=== PATIENT | male | born 1975 | race Caucasian/White ===

== ENCOUNTER 2023-08-02 11:39 | Emergency (ER) | payer SELFPAY ==
[2023-08-02 11:50] VITALS: RESP 18; TEMP 98.4; BMI 32.9
[2023-08-02] MEDS ORDERED: ACETAMINOPHEN 500 MG TABLET (FP) PO ONE (12:38)
[2023-08-02] MEDS ORDERED: ACETAMINOPHEN 325 MG TABLET (FP) ONE (12:54)
[2023-08-02 12:57] LABS: BASO % 0.8 % (0-2.0); EOS % 2.7 % (0-4.5); HEMATOCRIT 37.7 % (35.4-49); HEMOGLOBIN 13.1 GM/dL (11.7-16.9); LYMPH % 27.7 % (8-40); MCH 30.8 pg (25.7-33.7); MCHC 34.8 g/dl (32.0-35.9); MEAN CELL VOLUME 88.5 fl (80-96); MEAN PLT VOLUME 9.2 fl (7.5-11.1); MONO % 3.2 % (3.8-10.2); NEUT % 65.6 % (42.8-82.8); PLATELET COUNT 187 10^3/uL (134-434); RBC 4.26 M/mm3 (4.00-5.60); RDW 12.1 % (11.9-15.9); WHITE BLOOD COUNT 7.8 K/mm3 (4.0-10.0)
[2023-08-02 13:08] LABS: INR 0.95 (0.83-1.09)
[2023-08-02 13:11] LABS: ACTIVATED PTT 28.9 SECONDS (25.2-36.5)
[2023-08-02 13:18] LABS: CHLORIDE 101 mmol/L (98-107); POTASSIUM 4.4 mmol/L (3.5-5.1); SODIUM 133 mmol/L (136-145)
[2023-08-02 13:20] LABS: ALBUMIN 3.6 g/dl (3.4-5.0); ANION GAP 7 mmol/L (4-13); BLOOD UREA NITROGEN 27.4 mg/dL (7-18); CO2 25 mmol/L (21-32)
[2023-08-02 13:23] LABS: CREATININE 1.9 mg/dL (0.55-1.3); SGOT/AST 13 U/L (15-37); SGPT/ALT 27 U/L (13-61)
[2023-08-02 13:25] LABS: BILIRUBIN,TOTAL 0.4 mg/dL (0.2-1); TOT PROT 7.4 g/dl (6.4-8.2)
[2023-08-02 13:26] LABS: ALK PHOS 110 U/L (45-117)
[2023-08-02] MEDS ORDERED: LACTATED RINGERS SOLUTION 1000 ML INFUS.BAG IV ONE (13:26)
[2023-08-02] MEDS ORDERED: morphine CARPU-JECT 2 MG/1 ML DISP.SYRIN IVPUSH ONE (13:46)
[2023-08-02 13:57] LABS: GLUCOSE,RANDOM 461 mg/dL (74-106)
[2023-08-02 14:20] LABS: EPI CELLS 4 /uL (0-25.1); HYALINE CASTS 0 /uL (0-3.1); PH,URINE 5.5 (5.0-8.0); URINE APPEARANCE CLEAR; URINE BACTERIA 4 /uL (0-1359); URINE BILIRUBIN NEGATIVE (NEGATIVE); URINE COLOR YELLOW; URINE GLUCOSE (UA) 3+ (NEGATIVE); URINE KETONE NEGATIVE (NEGATIVE); URINE LEUK ESTERASE NEGATIVE (NEGATIVE); URINE NITRITE NEGATIVE (NEGATIVE); URINE PROTEIN 2+ (NEGATIVE); URINE RBC 11 /uL (0-23.9); URINE UROBILINOGEN 0.2 mg/dL (0.2-1.0); URINE WBC 5 /uL (0-25.8)
[2023-08-02 15:08] VITALS: BP 158/90; PULSE 70
== END 2023-08-02 16:35 | disposition home or self-care (01) ==
LOC: JER 11:39
PROC: 3E033GC Introduction of Other Therapeutic Substance into Peripheral Vein, Percutaneous Approach (ICD-10-PCS; principal; 2023-08-02)
DX: R10.31 Right lower quadrant pain (principal); S39.011A Strain of muscle, fascia and tendon of abdomen, initial encounter; X50.0XXA Overexertion from strenuous movement or load, initial encounter; Y99.0 Civilian activity done for income or pay
CPT/HCPCS: 36415; 74177-TC; 80053; 81003; 85025; 85610; 85730; 86850; 86900; 86901; 93005; 93010; 99285-25; Q9967

== ENCOUNTER 2023-08-15 12:28 | Emergency (ER) | payer SELFPAY ==
[2023-08-15 12:34] VITALS: BP 183/88; PULSE 85; RESP 18; TEMP 98.6; BMI 31.6
[2023-08-15] MEDS: CEFTRIAXONE 1,000 MG in DEXTROSE 5%-WATER - 50 ML IVPB ONE (15:17)
[2023-08-15] MEDS: DOXYCYCLINE HYCLATE 100 MG CAPSULE PO ONE (15:17)
[2023-08-15] MEDS ORDERED: DOXYCYCLINE HYCLATE 100 MG CAPSULE PO ONE (15:18)
[2023-08-15] MEDS ORDERED: CEFTRIAXONE 1 GM/50 ML BAG ONE (15:18)
[2023-08-15 15:20] LABS: BASO % 0.8 % (0-2.0); EOS % 3.3 % (0-4.5); HEMATOCRIT 36.4 % (35.4-49); HEMOGLOBIN 12.6 GM/dL (11.7-16.9); LYMPH % 32.9 % (8-40); MCH 30.7 pg (25.7-33.7); MCHC 34.7 g/dl (32.0-35.9); MEAN CELL VOLUME 88.4 fl (80-96); MEAN PLT VOLUME 9.3 fl (7.5-11.1); PLATELET COUNT 186 10^3/uL (134-434); RBC 4.12 M/mm3 (4.00-5.60); RDW 12.5 % (11.9-15.9); WHITE BLOOD COUNT 11.7 K/mm3 (4.0-10.0)
[2023-08-15 15:23] LABS: EPI CELLS 2 /uL (0-25.1); HYALINE CASTS 0 /uL (0-3.1); URINE APPEARANCE CLEAR; URINE BACTERIA 1 /uL (0-1359); URINE BILIRUBIN NEGATIVE (NEGATIVE); URINE COLOR YELLOW; URINE GLUCOSE (UA) 3+ (NEGATIVE); URINE KETONE NEGATIVE (NEGATIVE); URINE LEUK ESTERASE NEGATIVE (NEGATIVE); URINE NITRITE NEGATIVE (NEGATIVE); URINE PROTEIN 2+ (NEGATIVE); URINE RBC 11 /uL (0-23.9); URINE UROBILINOGEN 0.2 mg/dL (0.2-1.0); URINE WBC 5 /uL (0-25.8)
[2023-08-15 15:41] LABS: POTASSIUM 4.1 mmol/L (3.5-5.1)
[2023-08-15 15:45] LABS: CALCIUM 8.9 mg/dL (8.5-10.1)
[2023-08-15 15:46] LABS: ALBUMIN 3.4 g/dl (3.4-5.0); BLOOD UREA NITROGEN 26.3 mg/dL (7-18)
[2023-08-15 15:48] LABS: CREATININE 1.8 mg/dL (0.55-1.3)
[2023-08-15 15:49] LABS: BILIRUBIN,TOTAL 0.5 mg/dL (0.2-1); TOT PROT 6.8 g/dl (6.4-8.2)
[2023-08-15] MEDS: SODIUM CHLORIDE 0.9% 500 ML INFUS.BAG IV ONE (15:59)
== END 2023-08-15 19:20 | disposition home or self-care (01) ==
LOC: JER 12:28
DX: R10.31 Right lower quadrant pain (principal); N30.90 Cystitis, unspecified without hematuria
CPT/HCPCS: 36415; 74177-TC; 76870-TC; 80053; 81003; 82962; 85025; 87086; 99285-25; Q9967

== ENCOUNTER 2024-01-05 10:42 | Emergency (ER) | payer OTHER ==
[2024-01-05 11:19] VITALS: RESP 18; BMI 35.0
[2024-01-05] MEDS: SODIUM CHLORIDE 0.9% 1000 ML INFUS.BAG IV ONE ×2 (12:27→16:41)
[2024-01-05] MEDS ORDERED: KETOROLAC TROMETHAMINE 30 MG/1 ML VIAL ONE (12:28)
[2024-01-05] MEDS: KETOROLAC TROMETHAMINE 30 MG/1 ML VIAL IVPUSH ONE (12:29)
[2024-01-05 12:32] LABS: BASO % 1.2 % (0-2.0); EOS % 4.4 % (0-4.5); HEMATOCRIT 38.1 % (35.4-49); HEMOGLOBIN 13.3 GM/dL (11.7-16.9); LYMPH % 35.8 % (8-40); MCH 30.2 pg (25.7-33.7); MCHC 34.8 g/dl (32.0-35.9); MEAN CELL VOLUME 86.9 fl (80-96); MEAN PLT VOLUME 9.5 fl (7.5-11.1); MONO % 3.9 % (3.8-10.2); NEUT % 54.7 % (42.8-82.8); PLATELET COUNT 174 10^3/uL (134-434); RBC 4.39 M/mm3 (4.00-5.60); RDW 12.9 % (11.9-15.9); WHITE BLOOD COUNT 8.4 K/mm3 (4.0-10.0)
[2024-01-05 12:38] LABS: INR 0.86 (0.83-1.09); PROTHROMBIN TIME (PATIENT) 9.8 SEC (9.7-13.0)
[2024-01-05 12:41] LABS: ACTIVATED PTT 30.6 SECONDS (25.2-36.5)
[2024-01-05 12:58] LABS: POTASSIUM 4.6 mmol/L (3.5-5.1)
[2024-01-05 13:01] LABS: CALCIUM 8.8 mg/dL (8.5-10.1)
[2024-01-05 13:02] LABS: ALBUMIN 3.7 g/dl (3.4-5.0); BLOOD UREA NITROGEN 32.8 mg/dL (7-18)
[2024-01-05 13:05] LABS: CREATININE 2.4 mg/dL (0.55-1.3)
[2024-01-05 13:06] LABS: BILIRUBIN,TOTAL 0.4 mg/dL (0.2-1)
[2024-01-05 13:07] LABS: TOT PROT 7.3 g/dl (6.4-8.2)
[2024-01-05] MEDS: ACETAMINOPHEN 1000 MG/100 ML BAG IVPB ONE (16:41)
[2024-01-05] MEDS ORDERED: ACETAMINOPHEN INJECTION 100 ML IVPB ONE (16:44)
[2024-01-05 17:22] VITALS: BP 178/85; PULSE 65; TEMP 97.9
== END 2024-01-05 17:46 | disposition home or self-care (01) ==
LOC: JER 10:42
PROC: 3E033NZ Introduction of Analgesics, Hypnotics, Sedatives into Peripheral Vein, Percutaneous Approach (ICD-10-PCS; principal; 2024-01-05)
PROC: 3E0333Z Introduction of Anti-inflammatory into Peripheral Vein, Percutaneous Approach (ICD-10-PCS; 2024-01-05)
DX: K57.90 Diverticulosis of intestine, part unspecified, without perforation or abscess without bleeding (principal); K40.90 Unilateral inguinal hernia, without obstruction or gangrene, not specified as recurrent; R10.31 Right lower quadrant pain; R11.2 Nausea with vomiting, unspecified; R19.7 Diarrhea, unspecified
CPT/HCPCS: 36415; 74177-TC; 80053; 85025; 85610; 85730; 86850; 86900; 86901; 99285-25; J0131

== ENCOUNTER 2024-01-14 17:15 | Emergency (ER) | payer OTHER ==
[2024-01-14 17:31] VITALS: BP 160/70; PULSE 83; RESP 16; TEMP 98.5; BMI 32.9
[2024-01-14 18:32] LABS: BASO % 1.3 % (0-2.0); EOS % 4.4 % (0-4.5); HEMOGLOBIN 12.7 GM/dL (11.7-16.9); LYMPH % 33.4 % (8-40); MCH 30.2 pg (25.7-33.7); MCHC 34.2 g/dl (32.0-35.9); MEAN CELL VOLUME 88.3 fl (80-96); MEAN PLT VOLUME 9.4 fl (7.5-11.1); MONO % 4.2 % (3.8-10.2); NEUT % 56.7 % (42.8-82.8); PLATELET COUNT 180 10^3/uL (134-434); RDW 12.5 % (11.9-15.9); WHITE BLOOD COUNT 9.2 K/mm3 (4.0-10.0)
[2024-01-14] MEDS ORDERED: DALBAVANCIN HCL 500 MG VIAL (RESTRICTED TO ID ONLY) IVPB ONE (19:00)
[2024-01-14 19:02] LABS: POTASSIUM 4.3 mmol/L (3.5-5.1)
[2024-01-14 19:04] LABS: CALCIUM 8.6 mg/dL (8.5-10.1)
[2024-01-14 19:08] LABS: CREATININE 2.9 mg/dL (0.55-1.3)
[2024-01-14] MEDS: DALBAVANCIN HCL 1,500 MG in DEXTROSE 5%-WATER - 500 ML IVPB ONE (19:08)
[2024-01-14] MEDS: SODIUM CHLORIDE 0.9% 1000 ML INFUS.BAG IV ONE (19:49)
== END 2024-01-14 20:49 | disposition home or self-care (01) ==
LOC: JERFT 17:15
DX: L84 Corns and callosities (principal); E11.65 Type 2 diabetes mellitus with hyperglycemia; Z79.4 Long term (current) use of insulin
CPT/HCPCS: 36415; 73630-TC-RT-FY; 80048; 85025; 99284-25; J0875

== ENCOUNTER 2024-11-10 00:27 | Inpatient (IN) | payer OTHER ==
[2024-11-10 03:20] LABS: ABSOLUTE IMMATURE GRANULOCYTES 0.03 x10^3/uL (0.0-0.031); BASOPHILS # 0.06 x10^3/uL (0.01-0.08); EOSINOPHIL % 4.1 % (0.8-7.0); EOSINOPHILS # 0.45 x10^3/uL (0.04-0.54); HEMATOCRIT 31.4 % (40.1-51.0); HEMOGLOBIN 10.8 g/dL (13.7-17.5); MCHC 34.4 g/dl (32.3-36.5); MEAN CELL VOLUME 86.7 fl (79.0-92.2); MEAN PLT VOLUME 11.5 fl (9.4-12.4); MONOCYTE # 0.59 x10^3/uL (0.30-0.82); MONOCYTE % 5.3 % (5.3-12.2); PLATELET COUNT 159 x10^3/uL (163-337); RDW 12.3 % (12.1-15.9)
[2024-11-10 03:30] LABS: INR 0.97 (0.83-1.09); PROTHROMBIN TIME (PATIENT) 10.6 SEC (9.7-13.0)
[2024-11-10 03:52] LABS: POTASSIUM 3.8 mmol/L (3.5-5.1)
[2024-11-10 03:54] LABS: ALBUMIN 3.3 g/dl (3.4-5.0); BLOOD UREA NITROGEN 55.7 mg/dL (7-18); CALCIUM 8.5 mg/dL (8.5-10.1); MAGNESIUM 2.5 mg/dL (1.8-2.4)
[2024-11-10 03:58] LABS: CREATININE 4.5 mg/dL (0.55-1.3)
[2024-11-10 03:59] LABS: BILIRUBIN,TOTAL 0.4 mg/dL (0.2-1); TOT PROT 6.8 g/dl (6.4-8.2)
[2024-11-10 04:03] LABS: N-TERMINAL BNP 8292.2 pg/ml (5-125)
[2024-11-10 09:38] LABS: EPI CELLS 4 /uL (0-25.1); HYALINE CASTS 0 /uL (0-3.1); URINE BACTERIA 10 /uL (0-1359); URINE BILIRUBIN NEGATIVE (NEGATIVE); URINE COLOR YELLOW; URINE GLUCOSE (UA) 2+ (NEGATIVE); URINE KETONE NEGATIVE (NEGATIVE); URINE LEUK ESTERASE NEGATIVE (NEGATIVE); URINE NITRITE NEGATIVE (NEGATIVE); URINE PROTEIN 3+ (NEGATIVE); URINE RBC 10 /uL (0-23.9); URINE UROBILINOGEN 0.2 mg/dL (0.2-1.0); URINE WBC 6 /uL (0-25.8)
[2024-11-10] MEDS ORDERED: ASPIRIN 81 MG CHEWABLE TABLETS ONE (09:51)
[2024-11-10] MEDS: ASPIRIN COATED 81 MG TABLET.EC PO SCH (10:15)
[2024-11-10] MEDS ORDERED: INSULIN ASPART SLIDING SCALE (NOVOLOG) 1 VIAL SQ ONE (10:16)
[2024-11-10] MEDS: INSULIN ASPART SLIDING SCALE (NOVOLOG) 1 VIAL SQ SCH (10:17)
[2024-11-10] MEDS ORDERED: FUROSEMIDE 40 MG/4 ML INJECTABLE VIAL ONE (10:20)
[2024-11-10] MEDS: FUROSEMIDE 40 MG/4 ML INJECTABLE VIAL IVPUSH ONE (10:48)
[2024-11-10] MEDS ORDERED: hydrALAZINE HCL 25 MG TABLET (FP) ONE (13:23)
[2024-11-10] MEDS ORDERED: SEVELAMER CARBONATE 800 MG TAB (FP) ONE (13:23)
[2024-11-10] MEDS ORDERED: HEPARIN NA (PORCINE) 5,000 UNITS/ML 1ML VIAL ONE (13:23)
[2024-11-10 13:31] LABS: URINE APPEARANCE CLEAR
[2024-11-10] MEDS: HEPARIN NA (PORCINE) 5,000 UNITS/ML 1ML VIAL SQ SCH (13:42)
[2024-11-10] MEDS: hydrALAZINE HCL 25 MG TABLET (FP) PO SCH ×2 (13:42→14:14)
[2024-11-10] MEDS: ISOSORBIDE DINITRATE 5 MG TABLET PO SCH ×2 (13:42→14:15)
[2024-11-10] MEDS: SEVELAMER CARBONATE 800 MG TAB (FP) PO SCH ×2 (13:52→17:15)
[2024-11-10] MEDS: ATORVASTATIN CA 80 MG TABLET (FP) PO SCH (21:34)
[2024-11-11] MEDS: FUROSEMIDE 40 MG/4 ML INJECTABLE VIAL IVPUSH SCH (06:07)
[2024-11-11 10:01] LABS: HEMATOCRIT 31.3 % (40.1-51.0); HEMOGLOBIN 10.6 g/dL (13.7-17.5); MCHC 33.9 g/dl (32.3-36.5); MEAN CELL VOLUME 86.5 fl (79.0-92.2); MEAN PLT VOLUME 12.1 fl (9.4-12.4); PLATELET COUNT 155 x10^3/uL (163-337); RDW 12.1 % (12.1-15.9)
[2024-11-11 10:24] LABS: POTASSIUM 3.8 mmol/L (3.5-5.1)
[2024-11-11 10:51] LABS: CALCIUM 8.5 mg/dL (8.5-10.1)
[2024-11-11 10:52] LABS: BLOOD UREA NITROGEN 50.4 mg/dL (7-18); MAGNESIUM 2.3 mg/dL (1.8-2.4)
[2024-11-11 10:54] LABS: CREATININE 4.8 mg/dL (0.55-1.3); PHOSPHOROUS 4.2 mg/dL (2.5-4.9)
[2024-11-11 10:56] LABS: BILIRUBIN,TOTAL 0.7 mg/dL (0.2-1); TOT PROT 6.2 g/dl (6.4-8.2)
[2024-11-11] MEDS ORDERED: INSULIN (NOVOLOG) ASPART 100 UNITS/ML 10ML VIAL ONE (16:56)
[2024-11-11] MEDS: INSULIN GLARGINE (LANTUS) 100 UNITS/ML UNITS SQ SCH (21:23)
[2024-11-11] MEDS: hydrALAZINE HCL 50 MG TABLET (FP) PO SCH (21:23)
[2024-11-12 16:22] LABS: ABSOLUTE IMMATURE GRANULOCYTES 0.01 x10^3/uL (0.0-0.031); BASOPHILS # 0.06 x10^3/uL (0.01-0.08); EOSINOPHIL % 4.6 % (0.8-7.0); EOSINOPHILS # 0.37 x10^3/uL (0.04-0.54); HEMATOCRIT 31.7 % (40.1-51.0); HEMOGLOBIN 10.9 g/dL (13.7-17.5); MCHC 34.4 g/dl (32.3-36.5); MEAN CELL VOLUME 86.4 fl (79.0-92.2); MONOCYTE # 0.52 x10^3/uL (0.30-0.82); MONOCYTE % 6.5 % (5.3-12.2); PLATELET COUNT 158 x10^3/uL (163-337); RDW 12.2 % (12.1-15.9)
[2024-11-12 16:46] LABS: POTASSIUM 3.9 mmol/L (3.5-5.1)
[2024-11-12 16:48] LABS: CALCIUM 8.3 mg/dL (8.5-10.1)
[2024-11-12 16:49] LABS: ALBUMIN 3.1 g/dl (3.4-5.0); BLOOD UREA NITROGEN 53.1 mg/dL (7-18); MAGNESIUM 2.4 mg/dL (1.8-2.4)
[2024-11-12 16:52] LABS: CREATININE 5.6 mg/dL (0.55-1.3); PHOSPHOROUS 5.1 mg/dL (2.5-4.9)
[2024-11-12 16:53] LABS: BILIRUBIN,TOTAL 0.5 mg/dL (0.2-1)
[2024-11-12 16:54] LABS: TOT PROT 6.5 g/dl (6.4-8.2)
[2024-11-12] MEDS ORDERED: INSULIN (NOVOLOG) ASPART 100 UNITS/ML 10ML VIAL ONE (21:27)
[2024-11-12] MEDS: INSULIN GLARGINE (LANTUS) 100 UNITS/ML UNITS SQ SCH (21:35)
[2024-11-13] MEDS: INSULIN GLARGINE (LANTUS) 100 UNITS/ML UNITS SQ SCH (06:38)
[2024-11-13 09:15] LABS: ABSOLUTE IMMATURE GRANULOCYTES 0.01 x10^3/uL (0.0-0.031); BASOPHILS # 0.05 x10^3/uL (0.01-0.08); EOSINOPHIL % 4.5 % (0.8-7.0); EOSINOPHILS # 0.38 x10^3/uL (0.04-0.54); HEMATOCRIT 34.4 % (40.1-51.0); HEMOGLOBIN 11.8 g/dL (13.7-17.5); MCHC 34.3 g/dl (32.3-36.5); MEAN CELL VOLUME 87.1 fl (79.0-92.2); MEAN PLT VOLUME 11.7 fl (9.4-12.4); MONOCYTE # 0.41 x10^3/uL (0.30-0.82); MONOCYTE % 4.9 % (5.3-12.2); PLATELET COUNT 165 x10^3/uL (163-337); RDW 12.2 % (12.1-15.9)
[2024-11-13 09:25] LABS: POTASSIUM 3.9 mmol/L (3.5-5.1)
[2024-11-13 09:27] LABS: ALBUMIN 3.5 g/dl (3.4-5.0); CALCIUM 9.1 mg/dL (8.5-10.1)
[2024-11-13 09:28] LABS: BLOOD UREA NITROGEN 56.9 mg/dL (7-18); MAGNESIUM 2.4 mg/dL (1.8-2.4)
[2024-11-13 09:31] LABS: CREATININE 5.8 mg/dL (0.55-1.3); PHOSPHOROUS 5.4 mg/dL (2.5-4.9)
[2024-11-13 09:32] LABS: BILIRUBIN,TOTAL 0.7 mg/dL (0.2-1)
[2024-11-13] MEDS: FUROSEMIDE 40 MG/4 ML INJECTABLE VIAL IVPUSH SCH (10:43)
[2024-11-13 19:06] LABS: ANTIGLOMERULAR BASEMENT MEN.AB <0.2 units (0.0-0.9)
[2024-11-14 08:55] LABS: HEMATOCRIT 32.8 % (40.1-51.0); HEMOGLOBIN 11.1 g/dL (13.7-17.5); MCHC 33.8 g/dl (32.3-36.5); MEAN PLT VOLUME 11.9 fl (9.4-12.4); PLATELET COUNT 153 x10^3/uL (163-337); RDW 12.2 % (12.1-15.9)
[2024-11-14 09:32] LABS: CALCIUM 8.8 mg/dL (8.5-10.1)
[2024-11-14 09:33] LABS: ALBUMIN 3.3 g/dl (3.4-5.0); BLOOD UREA NITROGEN 61.9 mg/dL (7-18)
[2024-11-14 09:35] LABS: BILIRUBIN,TOTAL 0.6 mg/dL (0.2-1)
[2024-11-14 09:36] LABS: CREATININE 6.1 mg/dL (0.55-1.3); TOT PROT 6.6 g/dl (6.4-8.2)
[2024-11-14 19:08] LABS: C-ANCA <1:20 titer (Neg:<1:20)
[2024-11-15 10:08] LABS: HEMATOCRIT 33.2 % (40.1-51.0); HEMOGLOBIN 11.2 g/dL (13.7-17.5); MCHC 33.7 g/dl (32.3-36.5); MEAN CELL VOLUME 88.3 fl (79.0-92.2); MEAN PLT VOLUME 11.8 fl (9.4-12.4); PLATELET COUNT 159 x10^3/uL (163-337); RDW 12.1 % (12.1-15.9)
[2024-11-15] MEDS ORDERED: MIDAZOLAM HCL 2 MG/2 ML SINGLE DOSE VIAL ONE (10:09)
[2024-11-15] MEDS ORDERED: ceFAZolin SODIUM 1 GM VIAL ONE (10:09)
[2024-11-15] MEDS: ceFAZolin SODIUM 1 GM VIAL IVPB ONE ×2 (10:11)
[2024-11-15] MEDS: LIDOCAINE HCL 1%, 10 MG/ML (20ML VIAL) INF ONE ×2 (10:20)
[2024-11-15] MEDS ORDERED: PAPAVERINE HCL 30 MG/1 ML 10 ML VIAL NR ONE (10:25)
[2024-11-15] MEDS: POVIDONE-IODINE OINTMENT 10% - 28.4 GM TUBE TP ONE ×2 (11:08)
[2024-11-15] MEDS ORDERED: ONDANSETRON 4 MG/2 ML VIAL IVPUSH PRN ×2 (11:18→11:38)
[2024-11-15 11:40] LABS: POTASSIUM 4.1 mmol/L (3.5-5.1)
[2024-11-15 11:43] LABS: ALBUMIN 3.5 g/dl (3.4-5.0); BLOOD UREA NITROGEN 63.2 mg/dL (7-18); CALCIUM 8.9 mg/dL (8.5-10.1)
[2024-11-15 11:48] LABS: BILIRUBIN,TOTAL 0.7 mg/dL (0.2-1)
[2024-11-15 11:52] LABS: CREATININE 6.2 mg/dL (0.55-1.3)
[2024-11-15] MEDS ORDERED: ACETAMINOPHEN 325 MG TABLET (FP) PO PRN (13:56)
[2024-11-15] MEDS: ISOSORBIDE DINITRATE 5 MG TABLET PO SCH (14:58)
[2024-11-15] MEDS: SEVELAMER CARBONATE 800 MG TAB (FP) PO SCH (14:58)
[2024-11-15] MEDS: ACETAMINOPHEN 325 MG TABLET (FP) PO PRN (16:23)
[2024-11-15] MEDS: INSULIN ASPART SLIDING SCALE (NOVOLOG) 1 VIAL SQ SCH (16:26)
[2024-11-15] MEDS: ATORVASTATIN CA 80 MG TABLET (FP) PO SCH (21:25)
[2024-11-15] MEDS: hydrALAZINE HCL 50 MG TABLET (FP) PO SCH (21:26)
[2024-11-15] MEDS: INSULIN GLARGINE (LANTUS) 100 UNITS/ML UNITS SQ SCH (21:26)
[2024-11-16] MEDS: INSULIN GLARGINE (LANTUS) 100 UNITS/ML UNITS SQ SCH (06:28)
[2024-11-16 08:30] LABS: HEMATOCRIT 31.5 % (40.1-51.0); HEMOGLOBIN 10.6 g/dL (13.7-17.5); MCHC 33.7 g/dl (32.3-36.5); MEAN CELL VOLUME 88.2 fl (79.0-92.2); MEAN PLT VOLUME 11.8 fl (9.4-12.4); PLATELET COUNT 139 x10^3/uL (163-337); RDW 12.1 % (12.1-15.9)
[2024-11-16 09:04] LABS: POTASSIUM 3.6 mmol/L (3.5-5.1)
[2024-11-16 09:21] LABS: CALCIUM 8.7 mg/dL (8.5-10.1)
[2024-11-16 09:22] LABS: ALBUMIN 3.3 g/dl (3.4-5.0); BLOOD UREA NITROGEN 58.9 mg/dL (7-18)
[2024-11-16 09:25] LABS: CREATININE 5.6 mg/dL (0.55-1.3)
[2024-11-16 09:26] LABS: BILIRUBIN,TOTAL 0.6 mg/dL (0.2-1); TOT PROT 6.5 g/dl (6.4-8.2)
[2024-11-16 09:32] VITALS: RESP 16
[2024-11-16 10:30] LABS: PHOSPHOROUS 4.8 mg/dL (2.5-4.9)
[2024-11-16 13:47] VITALS: BP 109/60; PULSE 74; TEMP 99
[2024-11-16 15:05] VITALS: BMI 31.1
== END 2024-11-16 18:24 | disposition home or self-care (01) | DRG 180 ==
LOC: JER 00:27 → JERBED 07:28 → OBSVTOIN 08:52 → J6S 14:40
PROVIDERS: ADMIT Internal Medicine; ATTEND Internal Medicine
PROC: 03180ZD Bypass Left Brachial Artery to Upper Arm Vein, Open Approach (ICD-10-PCS; principal; 2024-11-15 17:30)
DX: I13.2 Hypertensive heart and chronic kidney disease with heart failure and with stage 5 chronic kidney disease, or end stage renal disease (principal); N17.9 Acute kidney failure, unspecified; E11.22 Type 2 diabetes mellitus with diabetic chronic kidney disease; N18.5 Chronic kidney disease, stage 5; I50.23 Acute on chronic systolic (congestive) heart failure; E11.319 Type 2 diabetes mellitus with unspecified diabetic retinopathy without macular edema; E11.65 Type 2 diabetes mellitus with hyperglycemia
CPT/HCPCS: 36415; 71046-TC-FY; 76775-TC; 80053; 81003; 82570; 82962; 83036; 83516; 83520; 83735; 83880; 84100; 84155; 84165; 84300; 84484; 85025; 85027; 85610; 85730; 86038; 86160; 86225; 86256; 93005; 93010; 93306-TC; 93985; 94760; 99285-25; G0378; J1644

== ENCOUNTER 2024-12-16 21:50 | Inpatient (IN) | payer OTHER ==
[2024-12-16] MEDS: NITROGLYCERIN SUBLINGUAL 1/150 0.4 MG TAB SL ONE (22:00)
[2024-12-16] MEDS ORDERED: NITROGLYCERIN 25MG/D5W 250ML 25 MG/250 ML ML IVPB ONE (22:03)
[2024-12-16] MEDS: NITROGLYCERIN 25MG/D5W 250ML 25 MG/250 ML ML IVPB SCH (22:09)
[2024-12-16 22:56] LABS: ABSOLUTE IMMATURE GRANULOCYTES 0.04 x10^3/uL (0.0-0.031); BASOPHILS # 0.05 x10^3/uL (0.01-0.08); EOSINOPHIL % 2.3 % (0.8-7.0); EOSINOPHILS # 0.29 x10^3/uL (0.04-0.54); HEMATOCRIT 29.8 % (40.1-51.0); HEMOGLOBIN 9.9 g/dL (13.7-17.5); MCHC 33.2 g/dl (32.3-36.5); MEAN CELL VOLUME 90.3 fl (79.0-92.2); MONOCYTE % 4.9 % (5.3-12.2); PLATELET COUNT 183 x10^3/uL (163-337); RDW 12.8 % (12.1-15.9)
[2024-12-16 22:57] LABS: VENOUS BASE EXCESS 3.7 mmol/L (-2-2); VENOUS O2 SATURATION 42.6 % (70-80); VENOUS PCO2 50.6 mmHg (38-52); VENOUS PH 7.386 (7.310-7.410)
[2024-12-16 23:07] LABS: INR 1.06 (0.83-1.09); PROTHROMBIN TIME (PATIENT) 11.5 SEC (9.7-13.0)
[2024-12-16 23:09] LABS: ACTIVATED PTT 26.4 SECONDS (25.2-36.5)
[2024-12-16 23:22] LABS: CHLORIDE 98 mmol/L (98-107); SODIUM 140 mmol/L (136-145)
[2024-12-16 23:24] LABS: ALBUMIN 3.1 g/dl (3.4-5.0); CALCIUM 7.5 mg/dL (8.5-10.1); CO2 30 mmol/L (21-32); GLUCOSE,RANDOM 240 mg/dL (74-106)
[2024-12-16 23:25] LABS: BLOOD UREA NITROGEN 55.8 mg/dL (7-18); MAGNESIUM 2.2 mg/dL (1.8-2.4)
[2024-12-16] MEDS ORDERED: ACETAMINOPHEN INJECTION 100 ML ONE (23:25)
[2024-12-16 23:27] LABS: CREATININE 5.4 mg/dL (0.55-1.3)
[2024-12-16 23:28] LABS: PHOSPHOROUS 5.2 mg/dL (2.5-4.9); SGOT/AST 67 U/L (15-37); SGPT/ALT 85 U/L (13-61)
[2024-12-16 23:29] LABS: BILIRUBIN,TOTAL 0.4 mg/dL (0.2-1); TOT PROT 6.4 g/dl (6.4-8.2)
[2024-12-16 23:30] LABS: ALK PHOS 144 U/L (45-117)
[2024-12-16 23:33] LABS: N-TERMINAL BNP 7221.7 pg/ml (5-125)
[2024-12-16 23:35] LABS: ANION GAP 12 mmol/L (4-13); POTASSIUM 2.8 mmol/L (3.5-5.1)
[2024-12-16] MEDS: ACETAMINOPHEN 1000 MG/100 ML BAG IVPB ONE (23:35)
[2024-12-17] MEDS ORDERED: ASPIRIN 81 MG CHEWABLE TABLETS ONE (00:11)
[2024-12-17] MEDS ORDERED: POTASSIUM CHLORIDE ORAL LIQUID 20 MEQ/15 ML ONE (00:12)
[2024-12-17] MEDS: ASPIRIN 81 MG CHEWABLE TABLETS PO ONE (00:25)
[2024-12-17] MEDS: POTASSIUM CHLORIDE ORAL LIQUID 20 MEQ/15 ML PO ONE (00:26)
[2024-12-17] MEDS: KCL 10 MEQ IVPB 10 MEQ/100 ML INFUS.BAG IVPB SCH (00:26)
[2024-12-17] MEDS ORDERED: NITROGLYCERIN SUBLINGUAL 1/150 0.4 MG TAB ONE (00:30)
[2024-12-17] MEDS ORDERED: KCL 10 MEQ IVPB 10 MEQ/100 ML INFUS.BAG IVPB ONE ×2 (01:43→02:37)
[2024-12-17] MEDS: NITROGLYCERIN 25MG/D5W 250ML 25 MG/250 ML ML IVPB SCH (01:45)
[2024-12-17] MEDS ORDERED: ACETAMINOPHEN 1000 MG/100 ML BAG IVPB PRN (02:05)
[2024-12-17] MEDS: FUROSEMIDE 40 MG/4 ML INJECTABLE VIAL IVPUSH ONE (02:52)
[2024-12-17 03:10] LABS: ARTERIAL BLD GAS O2 SATURATION 99.7 % (95-98); ARTERIAL BLOOD GAS BASE EXCESS 2.5 mmol/L (-2-2); ARTERIAL BLOOD GAS PO2 272.7 mmHg (80-100); ARTERIAL BLOOD GAS pH 7.457 (7.350-7.450); O2 CONTENT 1.66 % vol
[2024-12-17 05:02] VITALS: BMI 36.2
[2024-12-17] MEDS: FUROSEMIDE 40 MG/4 ML INJECTABLE VIAL IVPUSH SCH ×2 (05:31→21:57)
[2024-12-17] MEDS ORDERED: HEPARIN NA (PORCINE) 5,000 UNITS/ML 1ML VIAL SQ SCH (06:00)
[2024-12-17 06:55] LABS: POTASSIUM 3.7 mmol/L (3.5-5.1)
[2024-12-17 06:57] LABS: CALCIUM 7.8 mg/dL (8.5-10.1)
[2024-12-17 06:58] LABS: BLOOD UREA NITROGEN 54.4 mg/dL (7-18); MAGNESIUM 2.3 mg/dL (1.8-2.4)
[2024-12-17 07:01] LABS: CREATININE 5.4 mg/dL (0.55-1.3); PHOSPHOROUS 4.5 mg/dL (2.5-4.9)
[2024-12-17 07:02] LABS: BILIRUBIN,TOTAL 0.6 mg/dL (0.2-1); TOT PROT 6.3 g/dl (6.4-8.2)
[2024-12-17] MEDS: HEPARIN INFUSION - 25,000 UNITS/500 ML INFUS.BAG IVPB SCH ×2 (07:06→19:00)
[2024-12-17] MEDS: NITROGLYCERIN 2% OINTMENT - 1GM PACKET TD ONE (07:08)
[2024-12-17] MEDS: INSULIN ASPART SLIDING SCALE (NOVOLOG) 1 VIAL SQ SCH (07:11)
[2024-12-17] MEDS: ASPIRIN COATED 81 MG TABLET.EC PO SCH (09:44)
[2024-12-17] MEDS: SEVELAMER CARBONATE 800 MG TAB (FP) PO SCH (09:45)
[2024-12-17] MEDS: HEPARIN NA (PORCINE) 5,000 UNITS/ML 1ML VIAL IVPUSH PRN ×2 (14:23→22:33)
[2024-12-17] MEDS: METOLAZONE 2.5 MG TABLET (FP) PO ONE (15:55)
[2024-12-17] MEDS: FUROSEMIDE 40 MG TABLET (FP) PO ONE (15:55)
[2024-12-17 17:11] LABS: CALCIUM 8.3 mg/dL (8.5-10.1); POTASSIUM 3.5 mmol/L (3.5-5.1)
[2024-12-17 17:14] LABS: BLOOD UREA NITROGEN 54.6 mg/dL (7-18); CREATININE 5.4 mg/dL (0.55-1.3); MAGNESIUM 2.3 mg/dL (1.8-2.4)
[2024-12-17 17:15] LABS: PHOSPHOROUS 4.7 mg/dL (2.5-4.9)
[2024-12-17] MEDS: ATORVASTATIN CA 80 MG TABLET (FP) PO SCH (22:01)
[2024-12-17] MEDS: INSULIN GLARGINE (LANTUS) 100 UNITS/ML UNITS SQ SCH (22:01)
[2024-12-18 07:39] LABS: HEMATOCRIT 32.2 % (40.1-51.0); HEMOGLOBIN 10.3 g/dL (13.7-17.5); MEAN PLT VOLUME 11.6 fl (9.4-12.4); PLATELET COUNT 196 x10^3/uL (163-337); RDW 12.8 % (12.1-15.9)
[2024-12-18 08:11] LABS: POTASSIUM 3.6 mmol/L (3.5-5.1)
[2024-12-18 08:20] LABS: CALCIUM 8.7 mg/dL (8.5-10.1)
[2024-12-18 08:21] LABS: BLOOD UREA NITROGEN 57.4 mg/dL (7-18); MAGNESIUM 2.5 mg/dL (1.8-2.4)
[2024-12-18 08:24] LABS: CREATININE 5.6 mg/dL (0.55-1.3); PHOSPHOROUS 5.4 mg/dL (2.5-4.9)
[2024-12-18] MEDS: POTASSIUM CHLORIDE ORAL LIQUID 20 MEQ/15 ML PO ONE (10:17)
[2024-12-18] MEDS ORDERED: HEPARIN NA (PORCINE) 5,000 UNITS/ML 1ML VIAL ONE (14:09)
[2024-12-18] MEDS ORDERED: PAPAVERINE HCL 30 MG/1 ML 10 ML VIAL NR ONE (14:09)
[2024-12-18] MEDS ORDERED: LIDOCAINE HCL 1%, 10 MG/ML (20ML VIAL) ONE (14:09)
[2024-12-18] MEDS ORDERED: ONDANSETRON 4 MG/2 ML VIAL IVPUSH PRN ×2 (14:38→16:04)
[2024-12-18] MEDS ORDERED: SODIUM CHLORIDE 1,000 ML IV SCH (14:45)
[2024-12-18] MEDS ORDERED: SODIUM CHLORIDE 250 ML IV PRN ×2 (14:46→16:04)
[2024-12-18] MEDS ORDERED: MIDAZOLAM HCL 2 MG/2 ML SINGLE DOSE VIAL ONE (15:14)
[2024-12-18] MEDS: ceFAZolin SODIUM 1 GM VIAL IVPB ONE (15:25)
[2024-12-18] MEDS ORDERED: ceFAZolin SODIUM 1 GM VIAL ONE ×2 (15:28)
[2024-12-18] MEDS: LIDOCAINE HCL 1%, 10 MG/ML (20ML VIAL) INF ONE ×2 (15:32)
[2024-12-18] MEDS: SEVELAMER CARBONATE 800 MG TAB (FP) PO SCH (17:46)
[2024-12-18] MEDS: INSULIN ASPART SLIDING SCALE (NOVOLOG) 1 VIAL SQ SCH (17:46)
[2024-12-18] MEDS: SODIUM CHLORIDE 1,000 ML IV SCH (18:19)
[2024-12-18] MEDS: ACETAMINOPHEN 1000 MG/100 ML BAG IVPB PRN (18:21)
[2024-12-18 18:28] LABS: HEPATITIS B SURF AG NON-MATERN NON-REACTIVE (NONREACTIVE)
[2024-12-18 18:57] LABS: HCV DIAGNOSTIC IN-HOUSE W/RFLX NON-REACTIVE (NONREACTIVE)
[2024-12-18] MEDS: FUROSEMIDE 40 MG/4 ML INJECTABLE VIAL IVPUSH SCH (21:49)
[2024-12-18] MEDS: ATORVASTATIN CA 80 MG TABLET (FP) PO SCH (21:50)
[2024-12-18] MEDS: INSULIN GLARGINE (LANTUS) 100 UNITS/ML UNITS SQ SCH (22:03)
[2024-12-19 06:55] LABS: ABSOLUTE IMMATURE GRANULOCYTES 0.01 x10^3/uL (0.0-0.031); BASOPHILS # 0.07 x10^3/uL (0.01-0.08); EOSINOPHIL % 6.1 % (0.8-7.0); EOSINOPHILS # 0.49 x10^3/uL (0.04-0.54); HEMATOCRIT 33.3 % (40.1-51.0); HEMOGLOBIN 10.9 g/dL (13.7-17.5); MCHC 32.7 g/dl (32.3-36.5); MEAN PLT VOLUME 11.5 fl (9.4-12.4); MONOCYTE # 0.55 x10^3/uL (0.30-0.82); MONOCYTE % 6.9 % (5.3-12.2); PLATELET COUNT 190 x10^3/uL (163-337); RDW 12.4 % (12.1-15.9)
[2024-12-19 06:58] LABS: POTASSIUM 3.8 mmol/L (3.5-5.1)
[2024-12-19 07:08] LABS: ALBUMIN 3.4 g/dl (3.4-5.0); CALCIUM 8.9 mg/dL (8.5-10.1)
[2024-12-19 07:09] LABS: BLOOD UREA NITROGEN 59.6 mg/dL (7-18)
[2024-12-19 07:11] LABS: CREATININE 5.8 mg/dL (0.55-1.3)
[2024-12-19 07:13] LABS: BILIRUBIN,TOTAL 0.7 mg/dL (0.2-1); TOT PROT 6.9 g/dl (6.4-8.2)
[2024-12-19 08:44] LABS: HEMATOCRIT 29.5 % (40.1-51.0); HEMOGLOBIN 9.5 g/dL (13.7-17.5); MCHC 32.2 g/dl (32.3-36.5); MEAN CELL VOLUME 90.8 fl (79.0-92.2); MEAN PLT VOLUME 11.4 fl (9.4-12.4); PLATELET COUNT 162 x10^3/uL (163-337); RDW 12.5 % (12.1-15.9)
[2024-12-19 09:00] LABS: POTASSIUM 3.5 mmol/L (3.5-5.1)
[2024-12-19 09:01] LABS: CALCIUM 8.8 mg/dL (8.5-10.1)
[2024-12-19 09:02] LABS: BLOOD UREA NITROGEN 59.3 mg/dL (7-18)
[2024-12-19 09:05] LABS: CREATININE 5.7 mg/dL (0.55-1.3)
[2024-12-19] MEDS ORDERED: ENOXAPARIN NA (PORCINE) 30 MG/0.3 ML DISP.SYRIN SQ SCH (10:00)
[2024-12-19] MEDS: ASPIRIN COATED 81 MG TABLET.EC PO SCH (10:25)
[2024-12-19] MEDS: HEPARIN NA (PORCINE) 5,000 UNITS/ML 1ML VIAL SQ SCH (10:26)
[2024-12-19] MEDS ORDERED: SODIUM CHLORIDE 250 ML IV PRN (12:37)
[2024-12-19] MEDS: BUMETANIDE INJECTION 1 MG/4 ML VIAL IVPUSH ONE (19:33)
[2024-12-19] MEDS: HEPARIN INFUSION - 25,000 UNITS/500 ML INFUS.BAG IVPB SCH (19:34)
[2024-12-20 06:30] LABS: POTASSIUM 3.4 mmol/L (3.5-5.1)
[2024-12-20 06:38] LABS: CALCIUM 8.9 mg/dL (8.5-10.1)
[2024-12-20 06:39] LABS: BLOOD UREA NITROGEN 48.8 mg/dL (7-18); MAGNESIUM 2.2 mg/dL (1.8-2.4)
[2024-12-20 06:43] LABS: BILIRUBIN,TOTAL 0.6 mg/dL (0.2-1); TOT PROT 6.3 g/dl (6.4-8.2)
[2024-12-20 07:16] LABS: ABSOLUTE IMMATURE GRANULOCYTES 0.02 x10^3/uL (0.0-0.031); BASOPHILS # 0.09 x10^3/uL (0.01-0.08); EOSINOPHIL % 6.1 % (0.8-7.0); EOSINOPHILS # 0.56 x10^3/uL (0.04-0.54); HEMATOCRIT 32.4 % (40.1-51.0); HEMOGLOBIN 10.6 g/dL (13.7-17.5); MCHC 32.7 g/dl (32.3-36.5); MEAN CELL VOLUME 88.8 fl (79.0-92.2); MEAN PLT VOLUME 11.5 fl (9.4-12.4); MONOCYTE # 0.67 x10^3/uL (0.30-0.82); MONOCYTE % 7.3 % (5.3-12.2); PLATELET COUNT 189 x10^3/uL (163-337); RDW 12.4 % (12.1-15.9)
[2024-12-20] MEDS ORDERED: ENOXAPARIN NA (PORCINE) 30 MG/0.3 ML DISP.SYRIN SQ SCH (10:00)
[2024-12-20] MEDS ORDERED: ENOXAPARIN NA (PORCINE) 40 MG/0.4 ML DISP.SYRIN SQ SCH (10:00)
[2024-12-20] MEDS: FUROSEMIDE 40 MG/4 ML INJECTABLE VIAL IVPUSH SCH (21:08)
[2024-12-20] MEDS: HEPARIN NA (PORCINE) 5,000 UNITS/ML 1ML VIAL SQ SCH (21:09)
[2024-12-20] MEDS: INSULIN GLARGINE (LANTUS) 100 UNITS/ML UNITS SQ SCH (21:09)
[2024-12-20] MEDS: ATORVASTATIN CA 80 MG TABLET (FP) PO SCH (21:09)
[2024-12-20] MEDS: ACETAMINOPHEN 1000 MG/100 ML BAG IVPB PRN (21:10)
[2024-12-20] MEDS: INSULIN ASPART SLIDING SCALE (NOVOLOG) 1 VIAL SQ SCH (21:14)
[2024-12-20 22:06] VITALS: RESP 18
[2024-12-21 08:16] LABS: ABSOLUTE IMMATURE GRANULOCYTES 0.01 x10^3/uL (0.0-0.031); BASOPHILS # 0.07 x10^3/uL (0.01-0.08); EOSINOPHIL % 6.4 % (0.8-7.0); EOSINOPHILS # 0.49 x10^3/uL (0.04-0.54); HEMATOCRIT 32.4 % (40.1-51.0); HEMOGLOBIN 10.7 g/dL (13.7-17.5); MEAN CELL VOLUME 88.8 fl (79.0-92.2); MEAN PLT VOLUME 11.4 fl (9.4-12.4); MONOCYTE # 0.58 x10^3/uL (0.30-0.82); MONOCYTE % 7.6 % (5.3-12.2); PLATELET COUNT 189 x10^3/uL (163-337); RDW 12.4 % (12.1-15.9)
[2024-12-21 08:46] LABS: POTASSIUM 3.5 mmol/L (3.5-5.1)
[2024-12-21 08:48] LABS: BLOOD UREA NITROGEN 39.7 mg/dL (7-18); MAGNESIUM 2.3 mg/dL (1.8-2.4)
[2024-12-21 08:53] LABS: BILIRUBIN,TOTAL 0.6 mg/dL (0.2-1); CREATININE 4.8 mg/dL (0.55-1.3); TOT PROT 6.4 g/dl (6.4-8.2)
[2024-12-21 09:56] LABS: HEMATOCRIT 32.5 % (40.1-51.0); HEMOGLOBIN 10.9 g/dL (13.7-17.5); MCHC 33.5 g/dl (32.3-36.5); MEAN PLT VOLUME 11.4 fl (9.4-12.4); PLATELET COUNT 192 x10^3/uL (163-337); RDW 12.5 % (12.1-15.9)
[2024-12-21] MEDS: ASPIRIN COATED 81 MG TABLET.EC PO SCH (10:11)
[2024-12-21] MEDS: SEVELAMER CARBONATE 800 MG TAB (FP) PO SCH (10:11)
[2024-12-21] MEDS: ACETAMINOPHEN 500 MG TABLET (FP) PO SCH (11:18)
[2024-12-21] MEDS: ACETAMINOPHEN 325 MG TABLET (FP) PO SCH (12:14)
[2024-12-21 14:18] VITALS: BP 130/76; PULSE 75; TEMP 98.1
== END 2024-12-21 16:12 | disposition home or self-care (01) | DRG 194 ==
LOC: JER 21:50 → JERBED 12-17 00:42 → J2W 12-17 04:26 → J8W 12-20 20:23
PROVIDERS: ADMIT Internal Medicine; ATTEND Nurse Practitioner Acute Care
PROC: 02HV33Z Insertion of Infusion Device into Superior Vena Cava, Percutaneous Approach (ICD-10-PCS; 2024-12-18)
PROC: B548ZZA Ultrasonography of Superior Vena Cava, Guidance (ICD-10-PCS; 2024-12-18)
PROC: 0JH63XZ Insertion of Tunneled Vascular Access Device into Chest Subcutaneous Tissue and Fascia, Percutaneous Approach (ICD-10-PCS; principal; 2024-12-18 15:00)
PROC: 5A1D70Z Performance of Urinary Filtration, Intermittent, Less than 6 Hours Per Day (ICD-10-PCS; 2024-12-20)
DX: I13.2 Hypertensive heart and chronic kidney disease with heart failure and with stage 5 chronic kidney disease, or end stage renal disease (principal); J96.01 Acute respiratory failure with hypoxia; E87.29 Other acidosis; N18.6 End stage renal disease; E11.9 Type 2 diabetes mellitus without complications; E78.5 Hyperlipidemia, unspecified; E87.70 Fluid overload, unspecified; Z59.02 Unsheltered homelessness; I50.43 Acute on chronic combined systolic (congestive) and diastolic (congestive) heart failure; E66.9 Obesity, unspecified; Z68.36 Body mass index [BMI] 36.0-36.9, adult
CPT/HCPCS: 0241U-QW; 36415; 36600; 71045-TC-FY; 76000-TC-FY; 80048; 80053; 82803; 82962; 83036; 83605; 83735; 83880; 84100; 84484; 85025; 85027; 85610; 85730; 86704; 86803; 87081; 87340; 87517; 93005; 93010; 94660; 94760; 99291; C1750; J1644

== ENCOUNTER 2025-01-01 14:37 | Inpatient (IN) | payer OTHER ==
[2025-01-01 15:04] VITALS: BMI 32.9
[2025-01-01] MEDS ORDERED: FUROSEMIDE 40 MG/4 ML INJECTABLE VIAL ONE (15:40)
[2025-01-01] MEDS: FUROSEMIDE 40 MG/4 ML INJECTABLE VIAL IVPUSH ONE (15:40)
[2025-01-01 15:42] LABS: ABSOLUTE IMMATURE GRANULOCYTES 0.04 x10^3/uL (0.0-0.031); BASOPHILS # 0.08 x10^3/uL (0.01-0.08); EOSINOPHIL % 4.7 % (0.8-7.0); EOSINOPHILS # 0.46 x10^3/uL (0.04-0.54); HEMATOCRIT 31.4 % (40.1-51.0); HEMOGLOBIN 10.5 g/dL (13.7-17.5); MCHC 33.4 g/dl (32.3-36.5); MEAN PLT VOLUME 11.2 fl (9.4-12.4); MONOCYTE # 0.48 x10^3/uL (0.30-0.82); MONOCYTE % 4.9 % (5.3-12.2); PLATELET COUNT 211 x10^3/uL (163-337); RDW 12.5 % (12.1-15.9); VENOUS BASE EXCESS -2.7 mmol/L (-2-2); VENOUS O2 SATURATION 85.7 % (70-80); VENOUS PH 7.389 (7.310-7.410)
[2025-01-01 15:52] LABS: ACTIVATED PTT 27.9 SECONDS (25.2-36.5)
[2025-01-01 16:08] LABS: CHLORIDE 98 mmol/L (98-107); POTASSIUM 3.6 mmol/L (3.5-5.1); SODIUM 135 mmol/L (136-145)
[2025-01-01 16:10] LABS: ALBUMIN 3.3 g/dl (3.4-5.0); CALCIUM 8.4 mg/dL (8.5-10.1)
[2025-01-01 16:12] LABS: ANION GAP 13 mmol/L (4-13); CO2 24 mmol/L (21-32); MAGNESIUM 2.4 mg/dL (1.8-2.4)
[2025-01-01 16:15] LABS: CREATININE 6.3 mg/dL (0.55-1.3); PHOSPHOROUS 4.4 mg/dL (2.5-4.9); SGOT/AST 17 U/L (15-37)
[2025-01-01 16:16] LABS: ALK PHOS 150 U/L (45-117); BILIRUBIN,TOTAL 0.4 mg/dL (0.2-1); TOT PROT 7.1 g/dl (6.4-8.2)
[2025-01-01] MEDS ORDERED: VANCOMYCIN 1,000 MG in DEXTROSE 5%-WATER - 250 ML IVPB ONE (16:24)
[2025-01-01] MEDS ORDERED: ACETAMINOPHEN INJECTION 100 ML ONE (16:31)
[2025-01-01] MEDS: ACETAMINOPHEN 1000 MG/100 ML BAG IVPB ONE (16:35)
[2025-01-01] MEDS ORDERED: PIPERACILLIN/TAZOB 2.25 GM 2.25 GM/50 ML BAG IVPB ONE (16:51)
[2025-01-01] MEDS: PIPERACILLIN/TAZOB 2.25 GM 2.25 GM in DEXTROSE 5%-WATER - 50 ML IVPB ONE (17:01)
[2025-01-01 17:05] LABS: HCV DIAGNOSTIC IN-HOUSE W/RFLX NON-REACTIVE (NONREACTIVE); HIV INTERPRETATION NEGATIVE (NEGATIVE)
[2025-01-01 17:56] LABS: GLUCOSE,RANDOM 419 mg/dL (74-106); SGPT/ALT 27 U/L (13-61)
[2025-01-01] MEDS ORDERED: SODIUM CHLORIDE 250 ML IV PRN (18:26)
[2025-01-01] MEDS: EPOETIN ALFA-EPBX 4,000 UNIT/ML VIAL SQ ONE (19:41)
[2025-01-01] MEDS: HEPARIN NA (PORCINE) 5,000 UNITS/ML 1ML VIAL SQ SCH (21:58)
[2025-01-01] MEDS: ATORVASTATIN CA 80 MG TABLET (FP) PO SCH (21:58)
[2025-01-01] MEDS: INSULIN GLARGINE (LANTUS) 100 UNITS/ML UNITS SQ SCH (21:59)
[2025-01-01] MEDS: INSULIN ASPART SLIDING SCALE (NOVOLOG) 1 VIAL SQ SCH (22:14)
[2025-01-02] MEDS ORDERED: HEPARIN NA (PORCINE) 5,000 UNITS/ML 1ML VIAL IVPUSH PRN (00:01)
[2025-01-02] MEDS: NITROGLYCERIN SUBLINGUAL 1/150 0.4 MG TAB SL ONE (00:27)
[2025-01-02] MEDS: ASPIRIN 325 MG TABLET PO ONE (00:29)
[2025-01-02] MEDS: CLOPIDOGREL BISULFATE 75 MG TABLET (FP) PO ONE (00:29)
[2025-01-02] MEDS: METOPROLOL TARTRATE 50 MG TABLET (FP) PO ONE ×2 (00:29→01:03)
[2025-01-02] MEDS: HEPARIN SOD,PORK IN 0.45% NACL 25,000 UNITS/500 ML INFUS.BAG IVPB SCH (01:04)
[2025-01-02] MEDS: FUROSEMIDE 40 MG/4 ML INJECTABLE VIAL IVPUSH SCH (06:17)
[2025-01-02 07:35] LABS: ABSOLUTE IMMATURE GRANULOCYTES 0.04 x10^3/uL (0.0-0.031); BASOPHILS # 0.13 x10^3/uL (0.01-0.08); EOSINOPHIL % 4.3 % (0.8-7.0); EOSINOPHILS # 0.49 x10^3/uL (0.04-0.54); HEMATOCRIT 31.7 % (40.1-51.0); HEMOGLOBIN 10.4 g/dL (13.7-17.5); MCHC 32.8 g/dl (32.3-36.5); MEAN CELL VOLUME 88.8 fl (79.0-92.2); MEAN PLT VOLUME 11.5 fl (9.4-12.4); MONOCYTE # 0.76 x10^3/uL (0.30-0.82); MONOCYTE % 6.7 % (5.3-12.2); PLATELET COUNT 180 x10^3/uL (163-337); RDW 12.5 % (12.1-15.9)
[2025-01-02] MEDS: SEVELAMER CARBONATE 800 MG TAB (FP) PO SCH (07:59)
[2025-01-02 08:02] LABS: POTASSIUM 3.5 mmol/L (3.5-5.1)
[2025-01-02] MEDS: HEPARIN NA (PORCINE) 5,000 UNITS/ML 1ML VIAL IVPUSH PRN (08:12)
[2025-01-02 08:17] LABS: CALCIUM 8.8 mg/dL (8.5-10.1)
[2025-01-02 08:18] LABS: BLOOD UREA NITROGEN 27.4 mg/dL (7-18); MAGNESIUM 2.2 mg/dL (1.8-2.4)
[2025-01-02 08:21] LABS: CREATININE 4.4 mg/dL (0.55-1.3)
[2025-01-02 08:22] LABS: BILIRUBIN,TOTAL 0.6 mg/dL (0.2-1); TOT PROT 6.4 g/dl (6.4-8.2)
[2025-01-02] MEDS: CLOPIDOGREL BISULFATE 75 MG TABLET (FP) PO SCH (10:28)
[2025-01-02] MEDS: ASPIRIN COATED 81 MG TABLET.EC PO SCH (10:28)
[2025-01-02 19:17] VITALS: TEMP 99
[2025-01-02 22:00] VITALS: BP 135/72
[2025-01-02 22:40] VITALS: PULSE 85; RESP 17
== END 2025-01-02 22:46 | disposition short-term general hospital (02) | DRG 190 ==
LOC: JER 14:37 → JERBED 16:46 → J4W 21:28
PROVIDERS: ADMIT Internal Medicine; ATTEND Internal Medicine
PROC: 5A1D70Z Performance of Urinary Filtration, Intermittent, Less than 6 Hours Per Day (ICD-10-PCS; principal; 2025-01-01)
DX: I21.4 Non-ST elevation (NSTEMI) myocardial infarction (principal); I13.2 Hypertensive heart and chronic kidney disease with heart failure and with stage 5 chronic kidney disease, or end stage renal disease; I50.33 Acute on chronic diastolic (congestive) heart failure; N18.6 End stage renal disease; E11.22 Type 2 diabetes mellitus with diabetic chronic kidney disease; Z99.2 Dependence on renal dialysis; E11.65 Type 2 diabetes mellitus with hyperglycemia
CPT/HCPCS: 0241U-QW; 36415; 71045-TC-FY; 80053; 82550; 82553; 82803; 82962; 83735; 83880; 84100; 84484; 85025; 85610; 85730; 86803; 86850; 86900; 86901; 87389; 93005; 93010; 99285-25; Q5106

== ENCOUNTER 2025-03-04 18:44 | Emergency (ER) | payer OTHER ==
[2025-03-04 19:01] VITALS: BP 153/74; PULSE 91; RESP 18; TEMP 98.4; BMI 31.6
== END 2025-03-04 21:27 | disposition home or self-care (01) ==
LOC: JER 18:44
DX: E11.319 Type 2 diabetes mellitus with unspecified diabetic retinopathy without macular edema (principal); H53.9 Unspecified visual disturbance; R42 Dizziness and giddiness
CPT/HCPCS: 99283-25

== ENCOUNTER 2025-05-04 17:32 | Observation (INO) | payer OTHER ==
[2025-05-04 17:37] VITALS: BMI 30.4
[2025-05-04] MEDS ORDERED: ACETAMINOPHEN INJECTION 100 ML ONE (18:38)
[2025-05-04] MEDS ORDERED: METOCLOPRAMIDE HCL INJECTION 10 MG/2 ML VIAL ONE (18:38)
[2025-05-04 18:40] LABS: ABSOLUTE IMMATURE GRANULOCYTES 0.02 x10^3/uL (0.0-0.031); BASOPHILS # 0.05 x10^3/uL (0.01-0.08); EOSINOPHIL % 2.5 % (0.8-7.0); EOSINOPHILS # 0.23 x10^3/uL (0.04-0.54); MCHC 33.3 g/dl (32.3-36.5); MEAN CELL VOLUME 87.4 fl (79.0-92.2); MEAN PLT VOLUME 10.4 fl (9.4-12.4); MONOCYTE # 0.49 x10^3/uL (0.30-0.82); MONOCYTE % 5.3 % (5.3-12.2); RDW 14.4 % (12.1-15.9)
[2025-05-04] MEDS: ACETAMINOPHEN 1000 MG/100 ML BAG IVPB ONE (18:45)
[2025-05-04] MEDS: METOCLOPRAMIDE HCL INJECTION 10 MG/2 ML VIAL IVPB ONE (18:45)
[2025-05-04 19:15] LABS: GLUCOSE,RANDOM 182.0 mg/dL (74-106); TOT PROT 7.7 g/dl (6.4-8.2)
[2025-05-04 19:16] LABS: CO2 25.0 mmol/L (21-32)
[2025-05-04 19:18] LABS: ALK PHOS 101.0 U/L (40-150)
[2025-05-04 19:21] LABS: CREATININE 4.03 mg/dL (0.55-1.3); SGOT/AST 19.0 U/L (5-34); SGPT/ALT 22.0 U/L (0-55)
[2025-05-04 19:45] LABS: HCV DIAGNOSTIC IN-HOUSE W/RFLX NON-REACTIVE (NONREACTIVE); HIV INTERPRETATION NEGATIVE (NEGATIVE)
[2025-05-04] MEDS: INSULIN GLARGINE (LANTUS) 100 UNITS/ML UNITS SQ SCH (22:40)
[2025-05-04] MEDS: HEPARIN NA (PORCINE) 5,000 UNITS/ML 1ML VIAL SQ SCH (22:40)
[2025-05-04] MEDS: ATORVASTATIN CA 80 MG TABLET (FP) PO SCH (22:40)
[2025-05-04] MEDS: SEVELAMER CARBONATE 800 MG TAB (FP) PO SCH (22:41)
[2025-05-05] MEDS: ACETAMINOPHEN 1000 MG/100 ML BAG IVPB ONE (00:36)
[2025-05-05 03:10] VITALS: RESP 18
[2025-05-05 07:39] LABS: ABSOLUTE IMMATURE GRANULOCYTES 0.02 x10^3/uL (0.0-0.031); BASOPHILS # 0.06 x10^3/uL (0.01-0.08); EOSINOPHIL % 4.3 % (0.8-7.0); EOSINOPHILS # 0.34 x10^3/uL (0.04-0.54); MCHC 33.9 g/dl (32.3-36.5); MEAN CELL VOLUME 88.1 fl (79.0-92.2); MEAN PLT VOLUME 10.6 fl (9.4-12.4); MONOCYTE # 0.52 x10^3/uL (0.30-0.82); MONOCYTE % 6.6 % (5.3-12.2); RDW 14.4 % (12.1-15.9)
[2025-05-05 08:16] LABS: GLUCOSE,RANDOM 158.0 mg/dL (74-106)
[2025-05-05 08:17] LABS: CO2 25.0 mmol/L (21-32)
[2025-05-05 08:22] LABS: CREATININE 5.27 mg/dL (0.55-1.3)
[2025-05-05] MEDS: ASPIRIN COATED 81 MG TABLET.EC PO SCH (10:28)
[2025-05-05] MEDS: VALSARTAN 40 MG TABLET PO SCH (10:29)
[2025-05-05] MEDS: ACETAMINOPHEN 325 MG TABLET (FP) PO ONE (15:20)
[2025-05-05 15:40] VITALS: BP 143/75; PULSE 80; TEMP 98.1
== END 2025-05-05 17:52 | disposition home or self-care (01) ==
LOC: JER 17:32 → JERBED 19:34 → J4W 21:59
PROVIDERS: ADMIT Student in an Organized Health Care Education/Training Program; ATTEND Internal Medicine
PROC: 3E033NZ Introduction of Analgesics, Hypnotics, Sedatives into Peripheral Vein, Percutaneous Approach (ICD-10-PCS; principal; 2025-05-04)
PROC: 3E033GC Introduction of Other Therapeutic Substance into Peripheral Vein, Percutaneous Approach (ICD-10-PCS; 2025-05-04)
DX: I11.0 Hypertensive heart disease with heart failure (principal); E11.9 Type 2 diabetes mellitus without complications; R53.1 Weakness; K21.9 Gastro-esophageal reflux disease without esophagitis
CPT/HCPCS: 36415; 71045-TC-FY; 80048; 80053; 82962; 83690; 83735; 84100; 84484; 85025; 86803; 87389; 93005; 93010; 96365; 96375; 99285-25; G0378